=== PATIENT | female | born 1990 | race African-American/Black ===

== ENCOUNTER 2017-03-03 13:20 | Emergency (ER) | payer OTHER ==
[~2017-03-03] VITALS: Ht 160 cm; Wt 72.6 kg
[~2017-03-03 13:20] MED LIST: TRAMADOL 50 MG50 MG PO
[2017-03-03] MEDS ORDERED: ERYTHROMYCIN E3.5 G2 OPHTHALMIC (15:36)
[2017-03-03 15:44] VITALS: BP 105/64
== END 2017-03-03 15:45 | disposition home or self-care (01) ==
LOC: ER 13:20
DX: S05.02XA Injury of conjunctiva and corneal abrasion without foreign body, left eye, initial encounter (principal); X58.XXXA Exposure to other specified factors, initial encounter; Y93.89 Activity, other specified; Y92.89 Other specified places as the place of occurrence of the external cause; Y99.8 Other external cause status

== ENCOUNTER 2018-05-03 13:26 | Emergency (ER) | payer OTHER ==
[~2018-05-03] VITALS: Ht 160 cm; Wt 72.6 kg
[~2018-05-03 13:26] MED LIST changes: +ERYTHROMYCIN E3.5 G2 OPHTHALMIC
[2018-05-03] MEDS ORDERED: MOBIC7.5 MG PO (14:33)
[2018-05-03 14:39] VITALS: BP 104/78
== END 2018-05-03 18:22 | disposition home or self-care (01) ==
LOC: ER 13:26
DX: S81.811A Laceration without foreign body, right lower leg, initial encounter (principal); W26.0XXA Contact with knife, initial encounter; Y92.89 Other specified places as the place of occurrence of the external cause; Y93.89 Activity, other specified; Y99.8 Other external cause status